=== PATIENT | male | born 1965 | race Caucasian/White ===

== ENCOUNTER → 2020-03-27 07:14 | Outpatient (BNVA) | payer OTHER, SELFPAY | PROVIDERS: Family Provider Internal Medicine; Visit Provider Surgery | DX: Z11.59 Encounter for screening for other viral diseases (principal); Z80.0 Family history of malignant neoplasm of digestive organs | CPT/HCPCS: 87635 ==

== ENCOUNTER 2020-04-01 07:56 | Day surgery (SDC) | payer OTHER, SELFPAY ==
[2020-03-28 10:57] VITALS: BMI 27.4
--- NOTE | 2020-04-01 08:01 | W.PM.OPSUD ---
Surgery/Procedure H&P Update DATE OF PROCEDURE: April 01, 2020 DATE H&P PERFORMED: 03/21/20 H&P UPDATE INFORMATION: I have reviewed H&P completed within last 30 days, I have examined patient prior to procedure and No changes to prior documentation PLANNED PROCEDURE: Operation Date: 04/01/20 09:15 Proposed Procedures p Colonoscopy 61406 z80.0(Not Applicable) - Marco Ferraro MD
[2020-04-01 08:31] VITALS: BP 119/88; PULSE 70; RESP 18; TEMP 36.2; O2SAT 99
[2020-04-01] MEDS: sodium chloride 0.9% 1,000 ML 30 ML IV (08:53)
--- NOTE | 2020-04-01 09:23 | ANES.PREANE2 ---
Pre-Anesthetic Assessment Pre-Anesthetic Assessment: Height/Weight: Height 1.75 m Weight 84.368 kg Temp Pulse Resp BP Pulse Ox 97.2 F L 70 18 119/88 99 04/01/20 08:31 04/01/20 08:31 04/01/20 08:31 04/01/20 08:31 04/01/20 08:31 Preop Diagnosis: screening Proposed Procedure: Operation Date: 04/01/20 09:15 Proposed Procedures p Colonoscopy 75211 z80.0(Not Applicable) - Marco Ferraro MD Familial anesthetic complications: None Was Beta Kirsty taken within 24 hours: N/A Last intake: Intake Last Liquid Date 04/01/20 Last Liquid Time 06:00 Last Solid Date 03/31/20 Last Solid Time 12:00 Social: Social History: No alcohol and No tobacco Exam: Pre-Anes Outpt Exam: alert, oriented x 3, clear to auscultation bilaterally and regular rate & rhythm Airway: Cervical ROM: WNL MP: 3 Dentition: Full Additional comments: limited extension 2 cervical fusions Musc/skel: Comments: Spinal cord stimulator Anesthetic Plan: ASA status: 2 Anesthesia: MAC Risk of > 500 ml blood loss (7ml/kg in children): No Meds/Allergies Current Medications: Current Medications Generic Name Dose Route Start Last Admin Trade Name Freq PRN Reason Stop Dose Admin Sodium Chloride 1,000 mls @ 30 ml s/hr 04/01/20 08:30 04/01/20 08:53 Sodium Chloride 0.9% IV 30 mls/hr .Q24H AKSHAT Administration PFSH Anesthesia PFSH: Medical History (Updated 03/22/20 @ 08:50 by Marco Ferraro MD) Chronic headaches Chronic neck and back pain Neuropathy Spinal cord stimulator status Umbilical hernia Surgical History H/O circumcision H/O colonoscopy H/O neck surgery x2 History of back surgery x3 History of knee surgery bilateral History of surgical removal of ganglion cyst Family History Mother Cancer colon Sister Cancer colon and breast Denies family history of Diabetes CAD (coronary artery disease) Anesthesia complication Bleeding disorder Social History Smoking and tobacco status: never smoked Alcohol intake: current Alcohol intake frequency: holidays/special occasions only Household members: spouse Marital status: Current occupational status: retired History of recent travel: No Data Anesthesia Cardiac Studies: No Data to Display
[2020-04-01 10:00] VITALS: BP 115/84; PULSE 80; RESP 16; TEMP 36.2; O2SAT 98
[2020-04-01 10:15] VITALS: BP 123/69; PULSE 63; RESP 16; O2SAT 97
--- NOTE | 2020-04-01 13:37 | ANE.PACU2 ---
Inpatient post-anesthesia follow up: Airway intact: Yes Vital signs: Temperature 97.1 F Pulse Rate 63 Respiratory Rate 16 Blood Pressure 123/69 Pulse Oximetry 97 Oxygen Delivery Me thod Room Air Oxygen Flow Rate Fraction of Inspir ed Oxygen Hydration adequate: Yes Nausea and vomiting: No Pain level: 1 Mental status: Baseline
== END 2020-04-01 10:48 | disposition home or self-care (01) ==
PROVIDERS: Visit Provider Surgery
PROC: 0DJD8ZZ Inspection of Lower Intestinal Tract, Via Natural or Artificial Opening Endoscopic (ICD-10-PCS; CPT 45378; principal; 2020-04-01 09:15)
DX: Z12.11 Encounter for screening for malignant neoplasm of colon (principal); D12.2 Benign neoplasm of ascending colon; K57.30 Diverticulosis of large intestine without perforation or abscess without bleeding; K64.8 Other hemorrhoids; Z79.891 Long term (current) use of opiate analgesic; Z80.3 Family history of malignant neoplasm of breast; Z80.0 Family history of malignant neoplasm of digestive organs; Z96.82 Presence of neurostimulator
CPT/HCPCS: 12345; 45380; 88305; J2704; J7030